=== PATIENT | male | born 1955 | race Caucasian/White ===

== ENCOUNTER → 2016-04-26 | Outpatient (CLI) | payer OTHER ==
[~2016-04-26] MED LIST: ASPI81TA28 PO; CALC-496 PO; CHOL2000 PO; HYDR50TA3 PO; LEVO1TAB35 PO; LSN40 PO; LVMIPEN SQ; NVLGI7030 SC; PYRI100T2 PO
[2016-04-26 17:50] LABS: ALT/SGPT 45 U/L (12-78); BLOOD UREA NITROGEN 29 mg/dl (7-18); BUN/CREATININE RATIO 22.5 (10-20); CALCIUM 8.8 mg/dl (8.5-10.1); CARBON DIOXIDE 28 mmol/L (21-32); CHLORIDE 101 mmol/L (98-107); GLUCOSE 191 mg/dl (70-99); POTASSIUM 4.4 mmol/L (3.5-5.1); SODIUM 139 mmol/L (136-145)
[2016-04-26 17:53] LABS: ALKALINE PHOSPHATASE 73 U/L (45-117); AST/SGOT 30 U/L (15-37)
== END | disposition home or self-care (01) ==
LOC: C.LABPVFM 15:08
PROVIDERS: ATTEND Nurse Practitioner Family
DX: Z20.5 Contact with and (suspected) exposure to viral hepatitis (principal)

== ENCOUNTER → 2016-05-13 | Outpatient (CLI) | payer OTHER ==
--- NOTE | 2016-05-13 09:00 | DIAGNOSTIC IMAGING REPORT ---
RENAL ULTRASOUND HISTORY: N18.9 Chronic renal [id number] COMPARISON: None. FINDINGS: Right kidney: 11.9 cm. No hydronephrosis. Normal corticomedullary differentiation and cortical thickness. Left kidney: 1.3 cm. No hydronephrosis. Normal corticomedullary differentiation and cortical thickness. Bladder: Not well distended which limits evaluation. The bilateral ureteral jets were identified. IMPRESSION: Normal renal ultrasound. Electronically signed by: Manish Ledbetter M.D. 05/13/2016 8:59 AM Dictated Date/Time: 05/13/2016 8:52 AM
[2016-05-13 09:33] LABS: BASO % 0.6 %; BASO ABS # 0.07 K/uL (0-0.2); COMPLETE YES; EOS % 2.5 %; HEMATOCRIT 40.8 % (42-52); IG% 0.4 %; LYMPH % 19.2 %; LYMPH ABS # 2.07 K/uL (1.2-3.4); MEAN CELL VOLUME 92.1 fL (80-100); MEAN CORPUSCULAR HEMOGLOBIN 32.3 pg (25-34); MEAN PLATELET VOLUME 11.2 fL (7.4-10.4); MONO % 7.5 %; NEUT % 69.8 %; PLATELET COUNT 214 K/uL (130-400); RED BLOOD COUNT 4.43 M/uL (4.7-6.1)
[2016-05-13 09:55] LABS: MANUAL MICROSCOPIC REQUIRED? NO; REVIEW REQ? NO; URINE APPEARANCE CLEAR (CLEAR); URINE BILIRUBIN NEG (NEG); URINE COLOR YELLOW; URINE EPITHELIAL CELL AUTO 0-5 /lpf (0-5); URINE NITRITE NEG (NEG); URINE SPECIFIC GRAVITY 1.018 (1.000-1.030); UROBILINOGEN NEG (NEG)
[2016-05-13 10:04] LABS: URINE PROTIEN/CREAT RATIO 0.1 (0-0.2); URINE TOTAL PROTEIN 10.2 mg/dl (0-11.9)
== END | disposition home or self-care (01) ==
LOC: C.ULTR 07:50
PROVIDERS: ATTEND Nurse Practitioner Family
DX: N18.9 Chronic kidney disease, unspecified (principal)

== ENCOUNTER → 2016-05-13 | Outpatient (CLI) | payer OTHER ==
--- NOTE | 2016-05-13 08:41 | DIAGNOSTIC IMAGING REPORT ---
RIGHT FOOT 2 VIEWS CLINICAL HISTORY: Right foot pain. COMPARISON STUDY: Right foot 01/19/2016 FINDINGS: There is again noted old, healed Lisfranc fracture/dislocation. Marked degenerative change at the tarsometatarsal joint and navicular/cuneiforms joints. There is associated pes planus deformity. Soft tissue swelling at the dorsum of the foot has improved. There are posterior and plantar calcaneal spurs. Mild vascular calcifications. No acute fracture or dislocation identified. The Lisfranc fracture/dislocation demonstrates up to 9 mm of lateral displacement. This is consistent with a homolateral Lisfranc fracture/dislocation. IMPRESSION: 1. No change in alignment of the displaced, healed Lisfranc fracture/dislocation. 2. No acute fracture or dislocation within the right foot. 3. Persistent pes planus deformity and degenerative changes. 4. Improved soft tissue swelling at the midfoot. Electronically signed by: Manish Ledbetter M.D. 05/13/2016 8:40 AM Dictated Date/Time: 05/13/2016 8:35 AM
== END | disposition home or self-care (01) ==
LOC: C.RAD 07:55
PROVIDERS: ATTEND Internal Medicine Endocrinology, Diabetes & Metabolism
DX: M79.671 Pain in right foot (principal); M21.41 Flat foot [pes planus] (acquired), right foot

== ENCOUNTER → 2016-05-19 | Outpatient (CLI) | payer OTHER ==
[2016-05-19 13:25] LABS: BLOOD UREA NITROGEN 34 mg/dl (7-18); BUN/CREATININE RATIO 28.2 (10-20); CALCIUM 8.6 mg/dl (8.5-10.1); CARBON DIOXIDE 26 mmol/L (21-32); CHLORIDE 98 mmol/L (98-107); GLUCOSE 199 mg/dl (70-99); POTASSIUM 4.5 mmol/L (3.5-5.1); SODIUM 134 mmol/L (136-145)
[2016-05-19 13:26] LABS: PHOSPHORUS 3.1 mg/dl (2.5-4.9)
== END | disposition home or self-care (01) ==
LOC: C.LABPVFM 08:51
PROVIDERS: ATTEND Internal Medicine Nephrology
DX: N18.9 Chronic kidney disease, unspecified (principal)

== ENCOUNTER → 2016-05-28 | Outpatient (CLI) | payer OTHER ==
[2016-05-29 06:09] LABS: ESTIMATED AVERAGE GLUCOSE 163 mg/dl; HA1C FLAG Normal (Normal)
== END | disposition home or self-care (01) ==
LOC: C.LABPVFM 15:50
PROVIDERS: ATTEND Nurse Practitioner Adult Health
DX: E11.49 Type 2 diabetes mellitus with other diabetic neurological complication (principal)

== ENCOUNTER 2016-11-19 12:51 | Inpatient (IN) | payer OTHER ==
[~2016-11-19] VITALS: Ht 165.1 cm; Wt 79.8 kg
[2016-11-19] MEDS ORDERED: SODIUM CHLORIDE 0.9% 1000ML 1,000 ML IV STA (14:22)
[2016-11-19] MEDS ORDERED: PIPERACILLIN/TAZOBACTAM 4.5 GM/100ML D5W IV ONE (14:23)
[2016-11-19] MEDS ORDERED: VANCOMYCIN INJ 1,750 MG in SODIUM CHLORIDE 0.9% 500ML 500 ML IV ONE (14:30)
[2016-11-19] MEDS ORDERED: CHOL2000 PO (14:32)
[2016-11-19] MEDS ORDERED: NVLGI7030 SC (14:32)
[2016-11-19] MEDS ORDERED: ASPI81TA28 PO (14:32)
[2016-11-19] MEDS ORDERED: HYDR50TA3 PO (14:32)
[2016-11-19] MEDS ORDERED: LSN40 PO (14:32)
[2016-11-19] MEDS ORDERED: LVMIPEN SQ (14:32)
[2016-11-19 15:04] LABS: BASO % 0.3 %; BASO ABS # 0.05 K/uL (0-0.2); COMPLETE YES; EOS % 1.2 %; HEMATOCRIT 35.2 % (42-52); IG% 0.4 %; LYMPH % 7.8 %; LYMPH ABS # 1.32 K/uL (1.2-3.4); MEAN CELL VOLUME 93.1 fL (80-100); MEAN CORPUSCULAR HGB CONC 34.4 g/dl (32-36); MEAN PLATELET VOLUME 10.4 fL (7.4-10.4); MONO % 6.3 %; PLATELET COUNT 400 K/uL (130-400); RED BLOOD COUNT 3.78 M/uL (4.7-6.1); WHITE BLOOD COUNT 16.87 K/uL (4.8-10.8)
[2016-11-19 15:10] LABS: INR 1.1 (0.9-1.1); PROTHROMBIN TIME (PATIENT) 11.4 SECONDS (9.0-12.0)
--- NOTE | 2016-11-19 15:18 | DIAGNOSTIC IMAGING REPORT ---
RIGHT FOOT 3 VIEWS CLINICAL HISTORY: Foot injury. Charcot foot. FINDINGS: 3 views of the right foot are compared to study dated 07/22/2015. The skeletal structures are osteopenic. Resorptive/destructive change is identified in the second toe involving the phalanges. This has significantly increased from 07/22/2015. Pes planus is noted. Severe arthritic change in the midfoot is again noted. There is persistent widening between the base of the first and second metatarsals with lateral subluxation of the second metatarsal at the second tarsometatarsal joint consistent with chronic Lisfranc fracture/dislocation. There is also lateral subluxation of the third through fifth metatarsals. No acute fracture is identified. Large dorsal and plantar calcaneal enthesophytes are identified. Significant spurring is present along the dorsal aspect of the tarsal bones. There is significant soft tissue edema in the foot. Atherosclerotic calcification is present in the regional arteries. IMPRESSION: 1. Diffuse soft tissue swelling with no radiographic evidence of acute fracture. 2. There is resorptive change/destruction involving the phalanges of the second toe. This is of indeterminant etiology and represents a significant change from 07/22/2015. Infection would be impossible to exclude and clinical correlation will be required. 3. Chronic changes of a Charcot foot as above as well as chronic Lisfranc fracture/dislocation are similar to previous. Electronically signed by: Armond Brady M.D. 11/19/2016 3:17 PM Dictated Date/Time: 11/19/2016 3:12 PM
[2016-11-19 15:31] LABS: BUN/CREATININE RATIO 25.5 (10-20); CALCIUM 8.9 mg/dl (8.5-10.1); CREATININE 1.2 mg/dl (0.60-1.40); POTASSIUM 4.5 mmol/L (3.5-5.1)
[2016-11-19 15:34] LABS: ALB/GLOB RATIO 0.7 (0.9-2)
--- NOTE | 2016-11-19 15:52 | EMERGENCY ROOM VISIT NOTE ---
History Report prepared by Britney: Jerel Reyna Under the Supervision of: Dr. Beverly Gayle D.O. First contact with patient: 14:06 Chief Complaint: FOOT PAIN Stated Complaint: R FOOT PAIN History of Present Illness The patient is a 61 year old male who presents to the Emergency Room for evaluation after removing a bone from his right second toe yesterday. He states that the bone came out of his right second toe after he pulled it out manually. The patient states that he pulled it yesterday because he thought it was a scab. He states that he dropped a weight on his foot a few weeks ago, and thought that the area was bruised with scabbing over top. He states that he was wrapping and caring for the injury prior to removing the bone. The patient has a history of diabetes, and states that his blood sugars have been normal lately. He denies any fevers, chills, nausea, vomiting, diarrhea, dizziness, chest pain, or SOB. He notes that the area that the bone came out of appears red and swollen. Source of History: patient Onset: Yesterday Position: toe(s) (right second) Quality: other (bone removal) Timing: other (episode) Associated Symptoms: No fevers, No chills, No chest pain, No SOB, No nausea , No vomiting, No diarrhea Note: Additional symptoms: redness and swelling of the right second toe. Review of Systems See HPI for pertinent positives & negatives. A total of 10 systems reviewed and were otherwise negative. Past Medical & Surgical Medical Problems: (1) Charcot foot due to diabetes mellitus (2) Diabetic peripheral neuropathy associated with type 2 diabetes mellitus (3) Foot deformity (4) Loss of sensation (5) Right foot injury Family History Patient reports no known family medical history. Social History Smoking Status: Never Smoker Marital Status: single Housing Status: lives alone Occupation Status: employed Current/Historical Medications Scheduled Aspirin (Aspirin Ec), 81 MG PO DAILY Calcium Polycarbophil (Fiber-Caps), 625 MG PO DAILY Cholecalciferol (Vitamin D3), 2,000 UNITS PO DAILY Hydrochlorothiazide (Hctz), 50 MG PO DAILY Insulin Aspart 70/30 (Novolog Mix 70/30), 35 UNITS SC before supper Insulin Detemir (Levemir Flextouch), 55 UNITS SQ QAM Lisinopril (Lisinopril), 40 MG PO DAILY Pyridoxine Hcl (Vitamin B6), 100 MG PO DAILY Allergies Coded Allergies: No Known Allergies (Unverified , 07/22/15) Physical Exam Vital Signs Date Time Temp Pulse Resp B/P (MAP) Pulse Ox O2 Delivery O2 Flow Rate FiO2 11/19/16 16:45 83 16 128/76 100 Room Air 11/19/16 14:42 88 16 125/72 100 Room Air 11/19/16 13:10 36.7 93 20 133/65 93 Room Air Physical Exam GENERAL: alert, well appearing, well nourished, no distress, non-toxic EYE EXAM: normal conjunctiva, PERRL and EOM's grossly intact OROPHARYNX: no exudate, no erythema, lips, buccal mucosa, and tongue normal and mucous membranes are moist NECK: supple, no nuchal rigidity, no adenopathy, non-tender LUNGS: Clear to auscultation. Normal chest wall mechanics HEART: no murmurs, S1 normal and S2 normal ABDOMEN: abdomen soft, non-tender, normo-active bowel sounds, no masses, no rebound or guarding. BACK: Back is symmetrical on inspection and there is no deformity, no midline tenderness, no CVA tenderness. SKIN: no rashes and no bruising UPPER EXTREMITIES: upper extremities are grossly normal. RLE: Obvious deformity along the medial and dorsal aspect secondary to Charcot foot and injury. Increased edema at the distal foot. Mild erythema at the second and third digit on the plantar aspect. Increased erythema with purulent drainage to the plantar aspect of the base of the second and third toes. Erythema to the plantar aspect of the foot distally. Obvious deep concavity noted at the base of the second toe. Purulent drainage emanating from the concavity. No bleeding. Foul odor noted. Patient produces what appears to be a bone at bedside. NEURO EXAM: Normal sensorium, cranial nerves II-XII grossly intact, normal speech, no gross weakness of arms, no gross weakness of legs. Medical Decision & Procedures ER Provider Diagnostic Interpretation: Radiology results have been interpreted by the radiologist and reviewed by me. RIGHT FOOT 3 VIEWS FINDINGS: 3 views of the right foot are compared to study dated 07/22/2015. The skeletal structures are osteopenic. Resorptive/destructive change is identified in the second toe involving the phalanges. This has significantly increased from 07/22/2015. Pes planus is noted. Severe arthritic change in the midfoot is again noted. There is persistent widening between the base of the first and second metatarsals with lateral subluxation of the second metatarsal at the second tarsometatarsal joint consistent with chronic Lisfranc fracture/dislocation. There is also lateral subluxation of the third through fifth metatarsals. No acute fracture is identified. Large dorsal and plantar calcaneal enthesophytes are identified. Significant spurring is present along the dorsal aspect of the tarsal bones. There is significant soft tissue edema in the foot. Atherosclerotic calcification is present in the regional arteries. IMPRESSION: 1. Diffuse soft tissue swelling with no radiographic evidence of acute fracture. 2. There is resorptive change/destruction involving the phalanges of the second toe. This is of indeterminant etiology and represents a significant change from 07/22/2015. Infection would be impossible to exclude and clinical correlation will be required. 3. Chronic changes of a Charcot foot as above as well as chronic Lisfranc fracture/dislocation are similar to previous. Electronically signed by: Armond Brady M.D. Laboratory Results 11/19/16 14:30 Red Blood Count 3.78, Mean Corpuscular Volume 93.1, Mean Corpuscular Hemoglobin 32.0, Mean Corpuscular Hemoglobin Concent 34.4, Mean Platelet Volume 10.4, Neutrophils (%) (Auto) 84.0, Lymphocytes (%) (Auto) 7.8, Monocytes (%) (Auto) 6.3, Eosinophils (%) (Auto) 1.2, Basophils (%) (Auto) 0.3, Neutrophils # (Auto) 14.17, Lymphocytes # (Auto) 1.32, Monocytes # (Auto) 1.06, Eosinophils # (Auto) 0.21, Basophils # (Auto) 0.05 11/19/16 14:30 Test 11/19/16 14:30 11/19/16 15:53 White Blood Count 16.87 K/uL (4.8-10.8) Red Blood Count 3.78 M/uL (4.7-6.1) Hemoglobin 12.1 g/dL (14.0-18.0) Hematocrit 35.2 % (42-52) Mean Corpuscular Volume 93.1 fL (80-100) Mean Corpuscular Hemoglobin 32.0 pg (25-34) Mean Corpuscular Hemoglobin Concent 34.4 g/dl (32-36) Platelet Count 400 K/uL (130-400) Mean Platelet Volume 10.4 fL (7.4-10.4) Neutrophils (%) (Auto) 84.0 % Lymphocytes (%) (Auto) 7.8 % Monocytes (%) (Auto) 6.3 % Eosinophils (%) (Auto) 1.2 % Basophils (%) (Auto) 0.3 % Neutrophils # (Auto) 14.17 K/uL (1.4-6.5) Lymphocytes # (Auto) 1.32 K/uL (1.2-3.4) Monocytes # (Auto) 1.06 K/uL (0.11-0.59) Eosinophils # (Auto) 0.21 K/uL (0-0.5) Basophils # (Auto) 0.05 K/uL (0-0.2) RDW Standard Deviation 44.6 fL (36.4-46.3) RDW Coefficient of Variation 13.1 % (11.5-14.5) Immature Granulocyte % (Auto) 0.4 % Immature Granulocyte # (Auto) 0.06 K/uL (0.00-0.02) Erythrocyte Sedimentation Rate 79 mm/hr (0-14) Prothrombin Time 11.4 SECONDS (9.0-12.0) Prothromb Time International Ratio 1.1 (0.9-1.1) Anion Gap 7.0 mmol/L (3-11) Est Creatinine Clear Calc Drug Dose 61.9 ml/min Estimated GFR () 76.3 Estimated GFR (Non- 65.8 BUN/Creatinine Ratio 25.5 (10-20) Calcium Level 8.9 mg/dl (8.5-10.1) Total Bilirubin 0.6 mg/dl (0.2-1) Aspartate Amino Transf (AST/SGOT) 20 U/L (15-37) Alanine Aminotransferase (ALT/SGPT) 28 U/L (12-78) Alkaline Phosphatase 95 U/L (45-117) Total Protein 8.1 gm/dl (6.4-8.2) Albumin 3.2 gm/dl (3.4-5.0) Globulin 4.9 gm/dl (2.5-4.0) Albumin/Globulin Ratio 0.7 (0.9-2) Bedside Lactic Acid Venous 1.10 mmol/L (0.90-1.70) Laboratory results per my review. Medications Administered Medications (Trade) Dose Ordered Sig/Cristiana Route Start Time Stop Time Status Last Admin Dose Admin Piperacillin Sod/ Tazobactam Sod (Zosyn Iv) 4.5 gm NOW ONCE IV 11/19/16 14:23 11/19/16 14:25 DC 11/19/16 14:40 4.5 GM Vancomycin HCl 1750 mg/Sodium Chloride 535 ml @ 200 mls/hr NOW ONCE IV 11/19/16 14:30 11/19/16 17:10 DC 11/19/16 15:26 200 MLS/HR Sodium Chloride 1,000 ml @ 250 mls/hr Q4H STAT IV 11/19/16 14:22 11/19/16 18:21 DC 11/19/16 14:40 250 MLS/HR ED Course 1413: The patient was evaluated in room A3. A complete history and physical exam was performed. 1422: Ordered Sodium Chloride 1000 ml @ 250 mls/hr IV, Zosyn 4.5 gm IV. 1430: Ordered Vancomycin HCl 1750 mg/Sodium Chloride 535 ml @ 200 mls/hr IV. 1548: Upon reevaluation, the patient is resting comfortably. I discussed the findings and the treatment plan with the patient. He expresses agreement and understanding. I [place] [facility] [place]. The patient will be evaluated for further management. Medical Decision Differential diagnosis includes etiologies such as cellulitis, abscess, MRSA infection, DVT, necrotizing fasciitis, dermatitis, drug eruption, as well as others were entertained. Likely original injury complicated by wound infection and subsequent osteomyelitis as been progressing over the course of the last 3 weeks. Patient known diabetic. Did have hyperglycemia here, however no evidence of DKA. Patient's kidney number suggestive of dehydration. Patient with no evidence for bacteremia/sepsis, stable vital signs swelling or to department and afebrile. Leukocytosis likely manifestation of patient's infection. Pt presented portion of right 2nd middle phalanx here that he removed from his right foot at the base of the 2nd toe plantar aspect. Patient covered with IV antibiotics and cultures pending. Patient admitted to the hospitalist for likely additional imaging and orthopedic consultation. Patient verbalized understanding of need for admission was agreeable with plan. Medication Reconcilliation Current Medication List: was personally reviewed by me Blood Pressure Screening Patient's blood pressure: Normal blood pressure Blood pressure disposition: Did not require urgent referral Consults Time Called: [phone] Consulting Physician: Dr. Vera -MONET Returned Call: [phone] I reviewed the patient's case with Dr Vera. [facility] will evaluate the patient for further management. Impression Primary Impression: Osteomyelitis Additional Impressions: Right foot injury Diabetic peripheral neuropathy associated with type 2 diabetes mellitus Hyperglycemia Scribe Attestation The scribe's documentation has been prepared under my direction and personally reviewed by me in its entirety. I confirm that the note above accurately reflects all work, treatment, procedures, and medical decision making performed by me. Departure Information Dispostion Being Evaluated By Hospitalist Referrals Neda Meeks C.R.N.P (PCP) Patient Instructions My [facility] Problem Qualifiers Primary Impression: Osteomyelitis Osteomyelitis type: subacute Osteomyelitis location: foot Laterality: right Qualified Codes: M86.271 - Subacute osteomyelitis, right ankle and foot Additional Impressions: Right foot injury Encounter type: initial encounter Qualified Codes: S99.921A - Unspecified injury of right foot, initial encounter
[2016-11-19] MEDS ORDERED: POLYETHYLENE (MIRALAX) 17 GM PACK PO PRN (17:30)
[2016-11-19] MEDS ORDERED: ONDANSETRON INJ 2 MG/ML 2 ML VIAL IV PRN (17:30)
[2016-11-19] MEDS ORDERED: ALUMINUM/MAGNESIUM/SIMETH (MAALOX MAX) 30 ML UDC PO PRN (17:30)
[2016-11-19] MEDS ORDERED: MAGNESIUM HYDROXIDE SUSP 30 ML UDC PO PRN (17:30)
[2016-11-19] MEDS ORDERED: ACETAMINOPHEN 325 MG TAB PO PRN (17:30)
[2016-11-19 18:29] VITALS: BP 164/91; PULSE 71; TEMP 37; O2SAT 97
[2016-11-19] MEDS ORDERED: VANCOMYCIN CONSULT ACTIVE PRN (18:45)
[2016-11-19] MEDS ORDERED: GLUCAGON FOR INJ 1 MG VIAL SQ PRN (18:45)
[2016-11-19] MEDS ORDERED: PIPERACILL/TAZOBAC CONSULT ACTIVE PRN (18:45)
[2016-11-19] MEDS ORDERED: DEXTROSE 50% 50 ML SYR IV PRN (18:45)
[2016-11-19] MEDS ORDERED: GLUCOSE 40% GEL 15 GM TUBE PO PRN (18:45)
[2016-11-19] MEDS ORDERED: GLUCOSE 10 TABS/TUBE PO PRN (18:45)
--- NOTE | 2016-11-19 18:50 | Pharmacy Progress Note ---
Pharmacy Abx Initial Consult Date of Service Nov 19, 2016. Pharmacy Dosing Scope Date of Consult: 11/19/16 Consultation requested by: Dr. Vera Pharmacy is consulted to initiate Vancomycin and Zosyn IV dosing therapy, order appropriate labs and adjust drug dose/frequency. Subjective The patient is a 61 year old male admitted on Nov 19, 2016 at 17:35 with right foot infection after manually removing his own right 2nd toe, as patient thought it was a scab. PMH significant for DM with peripheral neuropathy. Objective Height (Feet): 5 Height (Inches): 3.00 Weight (Kilograms): 79.800 Vital Signs (Past 12Hrs) Vital Signs Past 12 Hours Date Time Temp Pulse Resp B/P (MAP) Pulse Ox O2 Delivery O2 Flow Rate FiO2 11/19/16 18:29 37.0 71 20 164/91 (115) 97 Room Air 11/19/16 17:46 87 18 156/83 99 Room Air 11/19/16 16:45 83 16 128/76 100 Room Air 11/19/16 14:42 88 16 125/72 100 Room Air 11/19/16 13:10 36.7 93 20 133/65 93 Room Air Lab Results (24Hrs) Laboratory Tests (24 Hours) Item Value Date Time Creatinine 1.20 mg/dl 11/19/16 1430 Est Creatinine Clear Calc Drug Dose 61.9 ml/min 11/19/16 1430 Test 11/19/16 14:30 White Blood Count 16.87 K/uL (4.8-10.8) H Red Blood Count 3.78 M/uL (4.7-6.1) L Hemoglobin 12.1 g/dL (14.0-18.0) L Hematocrit 35.2 % (42-52) L Mean Corpuscular Volume 93.1 fL (80-100) Mean Corpuscular Hemoglobin 32.0 pg (25-34) Mean Corpuscular Hemoglobin Concent 34.4 g/dl (32-36) Platelet Count 400 K/uL (130-400) Mean Platelet Volume 10.4 fL (7.4-10.4) Neutrophils (%) (Auto) 84.0 % Lymphocytes (%) (Auto) 7.8 % Monocytes (%) (Auto) 6.3 % Eosinophils (%) (Auto) 1.2 % Basophils (%) (Auto) 0.3 % Neutrophils # (Auto) 14.17 K/uL (1.4-6.5) H Lymphocytes # (Auto) 1.32 K/uL (1.2-3.4) Monocytes # (Auto) 1.06 K/uL (0.11-0.59) H Eosinophils # (Auto) 0.21 K/uL (0-0.5) Basophils # (Auto) 0.05 K/uL (0-0.2) Micro Results Date/Time Source Procedure Growth Status 11/19/16 14:30 Blood Blood Culture Pending Received 11/19/16 14:30 Blood Blood Culture Pending Received 11/19/16 14:39 Drainage-Deep Foot Right Gram Stain Pending Received 11/19/16 14:39 Drainage-Deep Foot Right Wound Culture Pending Received Assessment & Plan Assessment 61 year old male admitted for cellulitis and possible osteomyelitis of right foot after removal of 2nd right toe of wounded foot. Elevated WBC. Patient requires IV antibiotics, covering for possible anaerobes and MRSA. Plan Vancomycin and Zosyn IV for treatment of cellulitis of foot with possible osteomyelitis. Vancomycin IV * Loading dose: 1750 mg (22 mg/kg) x 1 today in ED at 1530 * Maintenance dose: 1250 mg IV (15 mg/kg) every 12 hours (dosing interval at patient's half life at this time as pt has possible osteo, may need to increase interval after first level) * Estimated pharmacokinetic parameters: T1/2 = 12 hours, Gerson = 0.056/hr, Vd = 0.7L/Kg * Goal trough level for cellulitis with possible osteomyelitis : 15 to 20 mcg/mL , shooting for upper side of range at this time for possible osteo * Trough level ordered for 11/21/16 prior to 0400 dose, this will be after patient has had 3 total doses of IV Vancomycin Piperacillin/tazobactam * 4.5 g bolus administered over 30 minutes x 1 in ED today, then 3.375 g IV extended infusion every 8 hours for CrCl greater than 20 mL/min Pharmacy will continue to follow and will adjust dose/frequency as necessary. Thank you.
[2016-11-19 18:53] VITALS: BP 164/91; PULSE 71; TEMP 37; O2SAT 97; Ht 165.1 cm; Wt 79.8 kg
[2016-11-19] MEDS: INSULIN ASPART 100 UNITS/ML 3 ML PEN SC SCH ×2 (20:00→21:00)
[2016-11-19] MEDS ORDERED: PYRI100T2 PO (20:52)
[2016-11-19] MEDS ORDERED: CALC-496 PO (20:52)
[2016-11-19] MEDS: PIPERACILL/TAZOBAC IV 3.375 GM in DEXTROSE 5% 100ML 100 ML IV SCH (20:52)
[2016-11-19] MEDS: INSULIN GLARGINE SOLOSTAR 100 UNITS/ML 3 ML PEN SC SCH (21:00)
[2016-11-19] MEDS: ENOXAPARIN 40 MG/0.4 ML SYR SQ SCH (21:07)
--- NOTE | 2016-11-19 21:28 | History and Physical ---
History & Physical Date of Service Nov 19, 2016. History & Physical admit #[id number]
--- NOTE | 2016-11-19 22:29 | HISTORY & PHYSICAL EXAMINATION ---
DATE OF ADMISSION: 11/19/2016 ADMISSION HISTORY AND PHYSICAL CHIEF COMPLAINT: Foot swelling and drainage from the wound. HISTORY OF PRESENT ILLNESS: History is obtained in large part from the ER and outpatient records because by the time I see the patient is fairly upset and agitated, he will reiterate some of the HPI, but it is difficult to get from him. It sounds like about 3 weeks ago he dropped a 55-pound weight on the right foot. He noted some immediate swelling and bruising, but because he has a Charcot foot and does not really have any sensation and there was not pain, he continued to walk and go about his business, maybe a week or two ago, then it started to be more swollen and recently there has been a wound and some purulent drainage. He then about 2 days ago was cleaning them with peroxide as he had been doing and felt like there was maybe a scab and he pulled a piece of bone out and continued to take care of the wound and then because of the drainage would not heal, he went to his PCP for further evaluation. There, they evaluated and had great concerns about the severity of the wound and the depth of infection and apparently the patient was a bit refractory to wanting further treatment. After imploring him, he did agree to go to the ER as long as he drove himself here he arrives and has no other complaints beyond that medically. He denies fevers, chills or sweats. No nausea, no vomiting. He does note with his sugars that they are all over the place, sometimes 50 sometimes 200, but mostly he is upset because he claims he has been lied to. He claims that he was told that he would just need to get a dose of IV antibiotics because it would get into his system faster and then likely be able to go home and feels like people are giving him different stories. He wants to go to his car to get information to be able to contact his brother and contact somebody about a shipment coming in from [place] tomorrow and whenever I even tried to explain the gravity of the situation and work towards a compromise to allow him to achieve these things, but in a way that is safe, he threatens to sign out AMA and threatens to call floor person. After quite a while, I am able to talk him down and I explained that we were going to try to reach a compromise to allow him to rearrange his outside of the hospital plans in a way that it would keep him safe. REVIEW OF SYSTEMS: Otherwise negative, except for as above. PAST MEDICAL HISTORY: Includes type 2 diabetes, uncontrolled with diabetic neuropathy, chronic renal disease and Charcot foot, hypertension, hypertriglyceridemia and microalbuminuria. PAST SURGICAL HISTORY: None of note. FAMILY HISTORY: Includes diabetes and cancer. SOCIAL HISTORY: He is . 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 He does drink alcohol weekly. No drugs. MEDICATIONS: Aspirin 81 mg daily, fiber daily, hydrochlorothiazide 50 mg daily, Levemir 40 units in the morning, NovoLog 35 units before supper, lisinopril 40 mg daily, vitamin B6 daily, vitamin D3 4000 international units daily. PHYSICAL EXAMINATION: VITAL SIGNS: Temperature 36.7, pulse 93, respiratory rate 20, blood pressure 133/65, 93% on room air. GENERAL: He is awake, alert, oriented x3. He is emotionally agitated, but in no physical distress. HEENT: Normocephalic, atraumatic. Mucous membranes are moist. CARDIOVASCULAR: Regular without rubs, murmurs, or gallops. LUNGS: Clear to auscultation bilaterally. No rales, rhonchi, or wheezes with good effort. ABDOMEN: Soft, nondistended, nontender, no masses or organomegaly. EXTREMITIES: Without cyanosis, clubbing or edema except for his right foot which is grossly edematous, erythematous. There is a wound at the base of his second toe with exudate coming out of it, the toe is quite floppy appearing to not have bone attached and he also has a bone that appears to fit in the area that is lucent, floppy that is sitting next to him at the bedside, it does appear to be fractured and a bit eroded SKIN: Shows the erythema and exudate in wound as above. No other rashes, pallor or icterus. NEUROLOGIC: Shows cranial nerves II-XII to be grossly intact. Gross motor and sensory are intact. MENTAL STATE: Shows good recent and remote recall. He is a somewhat agitated with fair to poor judgment and insight and fairly angry mood and affect, although with extensive discussions on his medical situation, the likely plans of action, the likely length of time and the fact that we will work with him to try to make sure he is able to reorder his out of hospital arrangements, he does calm down some, although immediately goes back to making sure that his out of hospital arrangements can be reordered. LABORATORIES AND DIAGNOSTICS: White count of 16.9, hemoglobin 12.1, platelets 400; 84% neutrophils, MCV of 93.1. Complete metabolic panel with sodium 136, potassium 4.5, chloride 102, CO2 27, BUN 31, creatinine 1.2, calcium 8.9, glucose 209, lactate 1.1, calcium 8.9, Total bili 0.6, AST of 20, ALT 28, alkaline phosphatase 95, total protein 8.1, albumin 3.2. PT of 11.4. His foot x-ray shows diffuse soft tissue swelling with no evidence of acute fracture resultant for destructive change involving the phalanges of the second toe, indeterminate etiology representing a significant change from prior chronic changes of a Charcot foot as well as chronic Lisfranc fracture dislocation. ASSESSMENT AND PLAN:1. Diabetic foot infection with sepsis and osteomyelitis. Unfortunately, it is very clear that he has osteomyelitis given that he not only had exposed bone, but he is removed it himself from his body. Given risks, certainly will be starting with broad antibiotic coverage with Zosyn and vancomycin. Cultures have been taken, blood cultures and from his foot. Hopefully, these will be able to help guide us more on treatment. He does show sepsis, but fortunately not severe sepsis and does appear to be medically stable with the situation. We will continue the Zosyn and vancomycin, have infectious disease see him for help with ongoing antibiotic treatment since very clear and I discussed with the patient the treatment will likely need to be prolonged in the order of be at least 6 weeks, possibly longer. Will have orthopedic surgery and wound physician see him in regards to further debridement, further surgical measures and I discussed this with him the elizabet detail as well that he may need further surgeries versus ongoing local wound care. Obviously, we will be consulting the wound care team for ongoing care as well and follow serial labs and serial exams. 2. Uncontrolled type 2 diabetes. We will switch him over from his regimen of a basal insulin 70/30 to a Lantus log regimen. Check an A1c, his last one was actually 7.3 in May. Follow fingersticks and give supplemental insulin as needed. 3. Hypertension. Continue his home medications. Obviously follow closely for anything but given that he is hypertensive despite his sepsis, will continue his antihypertensives. 4. Diabetic nephropathy as evidenced by his prior microalbuminuria. His creatinine is 1.2 and this appears to be around his most recent baseline, so he may have a degree of stage II chronic kidney disease. Continue to follow. Follow daily basic metabolic panel at least until his situation is more stabilized. 5. Deep venous thrombosis prophylaxis, Lovenox. 6. Agitation. I tried to explain the situation to the patient carefully in detail in plain language and repetitively as well as discussed with him that we would try to make every accommodation to help him arrange his life outside the hospital while knowing that he is in a very dire situation, given the severity of the foot infection and the strong concern of losing his foot from this. He would alternately express understanding of this and then demand to be able to go outside. I discussed with nursing to be able to arrange supervised nonweightbearing wheelchair escort to his car to get his needed information and he was okay with this, but then insistent to remind me that it would happen interestingly than when discussing the case later with the ER physician he had already expressed exactly that is the plan to him before I ever even met him. So, I do have concerns about his agitation to the situation whether it is a degree of denial of the severity of the situation whether it is another external reason for agitation, but certainly we will need to watch him closely and offer a continuous explanations, education and reassurance on the situation. PRAVEEN
[2016-11-19 23:08] VITALS: BP 125/69; PULSE 81; TEMP 36.8; O2SAT 98
[2016-11-20] VITALS (9 sets, daily range): BP systolic 112–171; BP diastolic 66–81; PULSE 77–110; TEMP 36.5–37.2; O2SAT 93–100
[2016-11-20] MEDS: VANCOMYCIN INJ 1,250 MG in SODIUM CHLORIDE 0.9% 250ML 250 ML IV SCH ×2 (03:35→15:59)
[2016-11-20] MEDS ORDERED: VANCOMYCIN INJ 1,250 MG in SODIUM CHLORIDE 0.9% 250ML 250 ML IV SCH (04:00)
[2016-11-20] MEDS: PIPERACILL/TAZOBAC IV 3.375 GM in DEXTROSE 5% 100ML 100 ML IV SCH ×3 (06:13→23:20)
[2016-11-20] MEDS: INSULIN ASPART 100 UNITS/ML 3 ML PEN SC SCH ×3 (08:00→18:30)
[2016-11-20 08:34] LABS: ESTIMATED AVERAGE GLUCOSE 166 mg/dl; HA1C FLAG Normal (Normal)
[2016-11-20 08:50] LABS: BASO % 0.7 %; BASO ABS # 0.09 K/uL (0-0.2); COMPLETE YES; EOS % 3.4 %; HEMATOCRIT 36.6 % (42-52); IG% 0.5 %; LYMPH % 13.8 %; LYMPH ABS # 1.67 K/uL (1.2-3.4); MEAN CELL VOLUME 93.1 fL (80-100); MEAN CORPUSCULAR HEMOGLOBIN 31.3 pg (25-34); MEAN CORPUSCULAR HGB CONC 33.6 g/dl (32-36); NEUT % 74.6 %; PLATELET COUNT 351 K/uL (130-400); RED BLOOD COUNT 3.93 M/uL (4.7-6.1); WHITE BLOOD COUNT 12.06 K/uL (4.8-10.8)
[2016-11-20] MEDS ORDERED: ONDANSETRON INJ 2 MG/ML 2 ML VIAL ONE (08:56)
[2016-11-20] MEDS ORDERED: ROCURONIUM BROMIDE 10 MG/ML 5 ML VIAL IV ONE (08:56)
[2016-11-20] MEDS ORDERED: EpHEDrine SULFATE INJ 50 MG/ML AMP ONE (08:56)
[2016-11-20] MEDS ORDERED: SUCCINYLCHOLINE CHLORIDE 20 MG/ML 10 ML VIAL IV ONE (08:56)
[2016-11-20] MEDS ORDERED: DEXAMETHASONE SOD INJ 4 MG/ML VIAL ONE (08:56)
[2016-11-20] MEDS ORDERED: LIDOCAINE HCL 2% 2 ML VIAL (20MG/ML) ONE (08:56)
[2016-11-20] MEDS ORDERED: GLYCOPYRROLATE INJ 0.2 MG/ML VIAL ONE (08:56)
[2016-11-20] MEDS ORDERED: PROPOFOL IV EMULSION 10 MG/ML 20 ML VIAL IV ONE (08:56)
[2016-11-20] MEDS ORDERED: NEOSTIGMINE METHYLSULFATE 5 MG/5 ML SYR ONE (08:56)
[2016-11-20] MEDS ORDERED: PHENYLEPHRINE HCL INJ 10 MG/ML VIAL ONE (08:56)
[2016-11-20] MEDS ORDERED: MIDAZOLAM HCL 1 MG/ML 2ML VIAL ONE (08:57)
[2016-11-20] MEDS ORDERED: FENTANYL CITRATE INJ 50 MCG/1 ML 2 ML VIAL ONE ×2 (08:57)
--- NOTE | 2016-11-20 08:59 | Progress Note ---
Progress Note Date of Service Nov 20, 2016. Progress Note ID Consult Dictated #[id number] A/P: 1. Traumatic foot injury, likely acute osteo -Follow cultures, continue emperic abx for now -Surgical eval pending, may require debridement/amp, please obtain OR cultures -Thank you
[2016-11-20] MEDS ORDERED: ONDANSETRON INJ 2 MG/ML 2 ML VIAL IV PRN (09:00)
[2016-11-20] MEDS ORDERED: ATROPINE SULFATE 0.1 MG/ML 5ML SYR IV PRN (09:00)
[2016-11-20] MEDS ORDERED: EpHEDrine SULFATE INJ 50 MG/ML AMP IV PRN (09:00)
[2016-11-20] MEDS ORDERED: FENTANYL CITRATE INJ 50 MCG/1 ML 2 ML VIAL IV PRN (09:00)
[2016-11-20] MEDS ORDERED: HYDROmorphone INJ 1 MG/ML SYR IV PRN (09:00)
[2016-11-20] MEDS ORDERED: LIDOCAINE/EPINEPHRINE 1% 20 ML VIAL ONE (09:02)
[2016-11-20] MEDS ORDERED: BUPIVACAINE 0.5 % 5 MG/1 ML MPF 30ML VIAL ONE (09:02)
--- NOTE | 2016-11-20 09:05 | Medical Consult ---
Consultation Note Date of Service Nov 20, 2016. Consultation Note CHIEF COMPLAINT: Right foot swelling and drainage from open wound. HISTORY OF PRESENT ILLNESS: Darius is a pleasant 61-year-old male, who dropped a weight on his foot 3 weeks ago and developed a wound on the base of his second toe they have been treating with peroxide. 2 days ago there was a scab that he pulled off and with it came part of the proximal phalanx. He was sent to the emergency room where he was admitted and started on IV antibiotics. He is felt to have osteomyelitis of the second toe and sepsis. Dr. Sheffield was consult did for osteomyelitis and right foot wound. He is out of town and I am covering for him. Past medical history: Uncontrolled type II diabetic, neuropathy, chronic renal disease, Charcot foot, hypertension, hyper triglyceridemia with microalbuminuria. past surgical history: Denies. MEDICATIONS: Aspirin 81 mg daily fiber daily hydrochlorothiazide 50 mg daily Levemir 40 units in the morning NovoLog 35 units before supper lisinopril 40 mg daily vitamin B6 daily vitamin D3 4000 international units daily. ALLERGIES: No known drug allergies. FAMILY HISTORY: Diabetes and cancer. SOCIAL HISTORY: He is and lives alone. 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 He admits to alcohol use. Denies recreational drug use. REVIEW OF SYSTEMS: A 10-point review of systems is noted in the shared ER intake form. PHYSICAL EXAM: Patient is in no acute distress breathing easily at 16-20 breaths per minute. The patient is resting comfortably on his hospital bed . They have an appropriate mood and affect. They weigh 79.8 kg and are 165 cm tall . focusing on his right lower extremity, his dressing was removed. He has no feeling in his toes. There is significant swelling of the right second toe with purulent drainage coming from the MCP joint region. There is erythema about the toe as well. He is able to wiggle his toes with limited range of motion. He has an obvious foot deformity consistent with Charcot foot. RADIOGRAPHS: 3 views of the right foot show significant swelling of the second toe as well as loss of bone from the proximal phalanx, middle phalanx and fragmentation of the distal phalanx. LABS: WBCs 12.6, ESR 79, hemoglobin 12.3, platelets 351. Blood cultures are pending. Gram stain of the wound showed many WBCs, few epithelial cells, many gram- positive cocci, few gram-positive bacilli and a few gram-negative bacilli. IMPRESSION: Right second toe osteomyelitis, in a septic patient. PLAN: After a lengthy discussion with the patient today regarding my above clinical findings, as well as reviewing their imaging, their treatment options of conservative management versus surgical intervention were discussed. The risk and benefits of each were discussed. Due to him having sepsis, I recommended emergent I&D and partial amputation of the second toe. I did speak with the primary care team who also felt that he was medically stable to proceed with surgery. He will continue with IV antibiotics. He understands that he may require further evaluation and repeat surgery. The risks of surgery included but not limited to: Infection, bleeding, nerve damage, continued pain, and deep vein thrombosis. They would like to proceed with surgery and informed consent was signed. The patient understood all my instructions and explanation; all their questions were satisfactorily addressed.
[2016-11-20] MEDS ORDERED: POVIDONE-IODINE OP SOLN 30 ML BTL ONE (09:07)
[2016-11-20 09:35] LABS: BUN/CREATININE RATIO 19.9 (10-20); C-REACTIVE PROTEIN 9.98 mg/dl (0-0.29); CALCIUM 8.6 mg/dl (8.5-10.1); POTASSIUM 4.4 mmol/L (3.5-5.1)
--- NOTE | 2016-11-20 10:02 | INFECT. DISEASE CONSULTATION ---
DATE OF CONSULTATION: 11/20/2016 DATE OF CONSULTATION: 11/20/2016 REQUESTING PHYSICIAN: Dr. Vera. HISTORY OF PRESENT ILLNESS: This is a 61-year-old gentleman who was admitted after he had purulent drainage from his right foot. Per the H&P, he dropped a weight on his foot sometime ago. Over the past several weeks his wound continued to worsen and he was treating this locally at home. He does have a Charcot foot on the right and has decreased sensation so he has not had any complaint of pain. A few weeks ago he noticed fragments of bone coming out on the wound. He then noticed purulent drainage. At that time, he did follow up with his primary care physician and he was encouraged to present to the Emergency Room. In the ER wound and blood cultures were obtained. The results of this are pending. He was placed on vancomycin and Zosyn. He does have a white blood cell count of 16.8 and sed rate that is elevated at 79. He has been afebrile since admission. An orthopedic evaluation is pending. He is tolerating antibiotics well. He continues to have drainage from the foot. He denies any fevers or chills. He has no chest pain, cough, shortness of breath, nausea, vomiting, diarrhea or abdominal pain. All remaining review of systems are reviewed and are unremarkable. PAST MEDICAL HISTORY: Significant for type 2 diabetes, neuropathy, renal disease, Charcot foot, hypertension, high cholesterol and microalbuminuria. PAST SURGICAL HISTORY: There is no surgical history of note. FAMILY HISTORY: Noncontributory. SOCIAL HISTORY: Significant for occasional alcohol use. He denies any drug use or tobacco use. He is retired. CURRENT MEDICATIONS: Include aspirin, calcium, hydrochlorothiazide, lisinopril, vitamin B6, vitamin D, vancomycin, Zosyn, Lovenox, Lantus, NovoLog, Tylenol, Maalox, milk of magnesia, MiraLax and Zofran. ALLERGIES: He has no known drug allergies. PHYSICAL EXAMINATION: VITAL SIGNS: She is afebrile, pulse 77, respiratory rate 18, blood pressure 147/74, oxygen saturation is 97-99% on room air. GENERAL: He is awake, alert and oriented x3. He is in no acute distress. HEAD, EYES, EARS, NOSE, AND THROAT: Mucous membranes are moist. Extraocular muscles are intact. HEART: Regular. LUNGS: Clear bilaterally. ABDOMEN: Soft, nontender, nondistended. There is no lower extremity edema. SKIN: Without rash. EXTREMITIES: Examination of the right foot reveals significant wound on the plantar aspect of the foot and across the second toe. There is seropurulent drainage. There is no foul odor. There is no surrounding warmth or erythema. There is no tenderness to palpation. LABORATORY STUDIES: CBC yesterday revealed a white blood cell count of 16.8, hemoglobin 12.1, platelets were 400. Sed rate was 79. Chemistry panel revealed a sodium of 139, potassium 4.5, chloride 102, bicarb 27, BUN 31, creatinine 1.2, glucose is 209. LFTs are within normal limits. CRP is pending. Blood and wound cultures are pending. Foot x-ray done in the Emergency Room shows soft tissue swelling with no evidence of fracture, resorptive and destructive changes of the second toe, significant change from June 2015. ASSESSMENT AND PLAN: Traumatic foot injury with likely associated osteomyelitis. He will remain on empiric antibiotics pending culture results. A surgical evaluation is pending. He certainly may need debridement and/or amputation. We will follow along with you. Thank you for this consultation.
--- NOTE | 2016-11-20 11:20 | DIAGNOSTIC IMAGING REPORT ---
Radiology RIGHT TOE(S) MIN 2 VIEWS CLINICAL HISTORY: 61 years-old Male presenting with I D RT 2ND DIGIT Right. TECHNIQUE: 2 fluoroscopic spot image(s) obtained as part of an intraoperative procedure. COMPARISON: 11/19/2016. FINDINGS/IMPRESSION: There has been interval resection of the second toe, which previously demonstrated extensive osseous erosion compatible with osteomyelitis. Preservation of the second metatarsal head and remaining phalanges. Anatomic alignment grossly maintained. Please see surgical report for further details. Fluoroscopy dosage (mGy): Not available. Fluoroscopy time: 11 seconds. Number of fluoroscopic spot images: 2. Electronically signed by: Markus Bautista M.D. 11/20/2016 11:18 AM Dictated Date/Time: 11/20/2016 11:17 AM
--- NOTE | 2016-11-20 11:34 | [facility] Operative Report ---
Operative Report Operative Date Nov 20, 2016. Pre-Operative Diagnosis Right second toe osteomyelitis, in a septic patient Post-Operative Diagnosis Right second toe osteomyelitis, in a septic patient Procedure(s) Performed Right second toe incision and drainage, 2nd toe amputation Surgeon Dr. Rowena Coreas Converter Operator Surgeon(s) Dr. Doug Rivas Estimated Blood Loss 12 mL Findings Infected Right 2nd toe, with pocket of purulent discharge volarly. Fluids 1000 Specimens Microbiology #1. Right second toe Routine C/S, Gram stain, Anerobic/Aerobic Sent to lab at 1005 Permanent specimens A: Right second toe Drains Iodaform gauze Anesthesia General Complication(s) None Disposition Recovery Room / PACU (Stable) Indications The patient is a 61-year-old male with diabetes and Charcot foot who dropped a weight on his foot 3 weeks ago and developed an open draining second toe wound and 2 days ago pulled out the proximal phalanx before coming to the hospital. He is has osteomyelitis and sepsis. The patient understands the risks of surgery, which include but are not limited to: bleeding, infection, re-operation , damage to nerves and arteries, continued pain and DVT. The patient understands all of these instructions and explanations, all of their questions have been satisfactorily addressed. The patient has elected to proceed with surgery and the informed consent was signed. Description of Procedure The patient was taken to the Operating Room and placed in the supine position on the operating table. After general anesthetic was administered a multidisciplinary time-out was performed identifying my initials on the right limb as the correct and operative limb. Antibiotics were held as he has already receiving Vancomycin and Zosyn on a scheduled basis. The right leg was prepped and draped in the usual Orthopaedic sterile fashion. The patient's open wound over the volar aspect of the second toe near the MCP joint was cultured. We were able to express a pocket of purulent fluid by milking the plantar aspect of the foot. The open wound was initially irrigated with some normal saline. The planned dorsal incision to aid with mobilization of the skin for closure was injected with a 50:50 mixture of 1% lidocaine and 0.5 % Marcaine with epi for a total of 4cc. The dorsal skin that typically would be used for a flap to close the wound following amputation of the second toe did not appear healthy and instead to skin flaps were created on the medial and lateral border with what appeared to be healthy tissue. The devitalized skin around the open wound was excised sharply with a scalpel. There was devitalized, necrotic soft tissue, and any non-viable skin, soft tissue was removed with a combination of sharp dissection with the scalpel, curette, and rongeur. The remaining bone from the base of the second toe proximal phalanx was removed with rongeur and curettes. Fluoroscopy was brought in to ensure that the fragments completely removed. The wound was copiously irrigated with 500 cc of Betadine ophthalmic and normal saline mixed solution as well as another 1400 mL's of normal saline. Following irrigation and debridement there was healthy viable red beefy tissue that was bleeding. The articular surface of the metatarsal head appeared intact and was not soft when probing with a freer. The skin were closed with 3-0 Prolene. The lateral flap was brought to the most distal aspect of the wound. The medial aspect was rotated more proximally and to the midline of the wound. The 2 cm incision allowed for mobilization of the soft tissues and further closure of the wound. The wound was packed with quarter inch iodoform Gauze. The limb was cleaned and dried. The wound was covered Xerofoam, 4 x 4's, ABDs, sterile cast padding, Coban, and postop shoe. The sponge and needle counts were correct. POST-OP: Patient will be re-admitted to the medicine service and continued on IV Vancomycin and Zosyn until cultures and sensitivities have been evaluated by by Dr. Patel. He will be weightbearing as tolerated through his heel. I attest to the content of the Intraoperative Record and any orders documented therein. Any exceptions are noted below.
--- NOTE | 2016-11-20 12:01 | Anesthesiology Progress Note ---
Anesthesia Post Op Note Date & Time Nov 20, 2016 at 12:00 Vital Signs Pain Intensity: 0 Vital Signs Past 12 Hours Date Time Temp Pulse Resp B/P (MAP) Pulse Ox O2 Delivery O2 Flow Rate FiO2 11/20/16 11:51 160/76 11/20/16 11:49 88 21 11/20/16 11:49 87 21 100 11/20/16 11:45 156/80 11/20/16 11:44 87 21 100 11/20/16 11:44 86 26 100 11/20/16 11:41 148/66 11/20/16 11:35 145/74 11/20/16 11:34 81 11/20/16 11:34 36.1 81 16 145/74 100 Oxymask 10 11/20/16 11:34 81 100 11/20/16 07:30 Room Air 11/20/16 07:10 36.7 77 18 147/74 (98) 98 Room Air Notes Mental Status: alert / awake / arousable, participated in evaluation Pt Amnestic to Procedure: Yes Nausea / Vomiting: adequately controlled Pain: adequately controlled Airway Patency, RR, SpO2: stable & adequate BP & HR: stable & adequate Hydration State: stable & adequate Anesthetic Complications: no major complications apparent
--- NOTE | 2016-11-20 12:21 | Progress Note ---
Subjective Date of Service: Nov 20, 2016. Subjective Pt evaluation today including: conversation w/ patient, physical exam, chart review, lab review, review of studies, conversation w/ sap ppm consultant, review of inpatient medication list Agreeable to go to OR Pain controlled No acute events overnight Problem List Medical Problems: (1) Fracture of metatarsal bone Status: Acute (2) Infection Status: Acute (3) Osteomyelitis Status: Acute Review of Systems Constitutional: No fever, No chills, No sweats, No weakness Eyes: No worsening of vision, No eye pain, No redness, No discharge Respiratory: No cough, No sputum, No wheezing, No shortness of breath, No dyspnea on exertion Cardiac: No chest pain, No orthopnea, No PND, No edema Abdomen: No pain, No nausea, No vomiting, No diarrhea Musculoskeletal: + joint pain, No muscle pain, No swelling, No calf pain Male : No dysuria, No urinary frequency, No incontinence, No slowing stream Neurologic: No memory loss, No paralysis, No weakness, No numbness/tingling Psychiatric: No depression symptoms, No anhedonism, No anxiety, No insomnia Endo: No fatigue, No excessive thirst Skin: No rash, No itch Objective Vital Signs Date Time Temp Pulse Resp B/P (MAP) Pulse Ox O2 Delivery O2 Flow Rate FiO2 11/20/16 12:15 86 19 166/76 100 Nasal Cannula 2 11/20/16 12:10 36.1 87 22 159/83 100 Nasal Cannula 2 11/20/16 11:51 160/76 11/20/16 11:49 88 21 11/20/16 11:49 87 21 100 11/20/16 11:45 156/80 11/20/16 11:44 87 21 100 11/20/16 11:44 86 26 100 11/20/16 11:41 148/66 11/20/16 11:35 145/74 11/20/16 11:34 81 11/20/16 11:34 36.1 81 16 145/74 100 Oxymask 10 11/20/16 11:34 81 100 11/20/16 07:30 Room Air 11/20/16 07:10 36.7 77 18 147/74 (98) 98 Room Air 11/19/16 23:58 Room Air 11/19/16 23:08 36.8 81 16 125/69 (87) 98 Room Air 11/19/16 18:53 37.0 71 20 164/91 97 Room Air 11/19/16 18:29 37.0 71 20 164/91 (115) 97 Room Air 11/19/16 17:46 87 18 156/83 99 Room Air 11/19/16 16:45 83 16 128/76 100 Room Air 11/19/16 14:42 88 16 125/72 100 Room Air 11/19/16 13:10 36.7 93 20 133/65 93 Room Air Physical Exam General Appearance: WD/WN, no apparent distress Neck: supple, no adenopathy, thyroid normal, no JVD Respiratory/Chest: chest non-tender, lungs clear, normal breath sounds, no respiratory distress Cardiovascular: regular rate, rhythm, no edema, no gallop, no JVD Abdomen: normal bowel sounds, non tender, soft, no organomegaly Extremities: normal range of motion, non-tender, normal inspection, no pedal edema Neurologic/Psychiatric: no motor/sensory deficits, alert, normal mood/affect, oriented x 3 Laboratory Results Last 24 Hours Test 11/19/16 14:30 11/19/16 15:53 11/19/16 20:32 11/20/16 08:22 White Blood Count 16.87 K/uL 12.06 K/uL Red Blood Count 3.78 M/uL 3.93 M/uL Hemoglobin 12.1 g/dL 12.3 g/dL Hematocrit 35.2 % 36.6 % Mean Corpuscular Volume 93.1 fL 93.1 fL Mean Corpuscular Hemoglobin 32.0 pg 31.3 pg Mean Corpuscular Hemoglobin Concent 34.4 g/dl 33.6 g/dl Platelet Count 400 K/uL 351 K/uL Mean Platelet Volume 10.4 fL 10.0 fL Neutrophils (%) (Auto) 84.0 % 74.6 % Lymphocytes (%) (Auto) 7.8 % 13.8 % Monocytes (%) (Auto) 6.3 % 7.0 % Eosinophils (%) (Auto) 1.2 % 3.4 % Basophils (%) (Auto) 0.3 % 0.7 % Neutrophils # (Auto) 14.17 K/uL 8.99 K/uL Lymphocytes # (Auto) 1.32 K/uL 1.67 K/uL Monocytes # (Auto) 1.06 K/uL 0.84 K/uL Eosinophils # (Auto) 0.21 K/uL 0.41 K/uL Basophils # (Auto) 0.05 K/uL 0.09 K/uL RDW Standard Deviation 44.6 fL 44.2 fL RDW Coefficient of Variation 13.1 % 12.9 % Immature Granulocyte % (Auto) 0.4 % 0.5 % Immature Granulocyte # (Auto) 0.06 K/uL 0.06 K/uL Erythrocyte Sedimentation Rate 79 mm/hr Prothrombin Time 11.4 SECONDS Prothromb Time International Ratio 1.1 Sodium Level 136 mmol/L 135 mmol/L Potassium Level 4.5 mmol/L 4.4 mmol/L Chloride Level 102 mmol/L 102 mmol/L Carbon Dioxide Level 27 mmol/L 27 mmol/L Anion Gap 7.0 mmol/L 6.0 mmol/L Blood Urea Nitrogen 31 mg/dl 20 mg/dl Creatinine 1.20 mg/dl 1.00 mg/dl Est Creatinine Clear Calc Drug Dose 61.9 ml/min 77.4 ml/min Estimated GFR () 76.3 95.1 Estimated GFR (Non- 65.8 82.0 BUN/Creatinine Ratio 25.5 19.9 Random Glucose 209 mg/dl 148 mg/dl Estimated Average Glucose 166 mg/dl Hemoglobin A1c 7.4 % Calcium Level 8.9 mg/dl 8.6 mg/dl Total Bilirubin 0.6 mg/dl Aspartate Amino Transf (AST/SGOT) 20 U/L Alanine Aminotransferase (ALT/SGPT) 28 U/L Alkaline Phosphatase 95 U/L Total Protein 8.1 gm/dl Albumin 3.2 gm/dl Globulin 4.9 gm/dl Albumin/Globulin Ratio 0.7 Bedside Lactic Acid Venous 1.10 mmol/L Bedside Glucose 160 mg/dl C-Reactive Protein 9.98 mg/dl Test 11/20/16 08:33 11/20/16 11:37 Bedside Glucose 149 mg/dl 175 mg/dl Assessment and Plan Diabetic foot with osteomyelitis Cont Zosyn and vancomycin. Cultures have been taken, blood cultures and from his foot ID has been consulted Orthopedics consulted, may need MRI, but will need to go to OR for urgent debridement and likely partial amputation Uncontrolled type 2 diabetes. We will switch him over from his regimen of a basal insulin 70/30 to a Lantus log regimen. Check an A1c, his last one was actually 7.3 in May. Follow fingersticks and give supplemental insulin as needed. Hypertension. Continue his home medications. Obviously follow closely for anything but given that he is hypertensive despite his sepsis, will continue his antihypertensives. Diabetic nephropathy as evidenced by his prior microalbuminuria. His creatinine is 1.2 and this appears to be around his most recent baseline, so he may have a degree of stage II chronic kidney disease. Continue to follow. Follow daily basic metabolic panel at least until his situation is more stabilized. Deep venous thrombosis prophylaxis, Lovenox.
[2016-11-20] MEDS: CALCIUM POLYCARBOPHIL 1 TAB PO SCH (12:35)
[2016-11-20] MEDS: ASPIRIN 81 MG ECTAB PO SCH (12:35)
[2016-11-20] MEDS: HYDROCHLOROTHIAZIDE 50 MG TAB PO SCH (12:36)
[2016-11-20] MEDS: PYRIDOXINE HCL 50 MG TAB PO SCH (12:36)
[2016-11-20] MEDS: LISINOPRIL 40 MG TAB PO SCH (12:37)
[2016-11-20] MEDS: CHOLECALCIFEROL 1000 INTER.UNIT TAB PO SCH (12:37)
[2016-11-20] MEDS: INSULIN GLARGINE SOLOSTAR 100 UNITS/ML 3 ML PEN SC SCH (12:40)
[2016-11-20] MEDS: POTASSIUM CHLORIDE INJ 10 MEQ in SODIUM CHLORIDE 0.9% 1000ML 1,000 ML IV SCH ×2 (12:44→22:51)
[2016-11-20] MEDS ORDERED: SEVERE STRESS LEVEL ONE (21:00)
[2016-11-20] MEDS ORDERED: INSULIN PROTOCOL GOAL RANGE ONE (21:00)
[2016-11-20] MEDS ORDERED: DC ALL PREVIOUSLY ORDERED DIABETES MEDS ONE (21:00)
[2016-11-20] MEDS ORDERED: INSULIN ASPART 100 UNITS/ML 3 ML PEN SC SCH (21:00)
[2016-11-20] MEDS ORDERED: INSULIN IV INFUSION PROTOCOL SCH (21:15)
[2016-11-20] MEDS ORDERED: INSULIN REGULAR 250 UNITS in SODIUM CHLORIDE 0.9% 250ML 250 ML IV SCH (21:27)
[2016-11-20] MEDS ORDERED: INSULIN HUMAN REGULAR IV BOLUS 3 UNIT in SYRINGE 0 ML IV SCH (21:30)
[2016-11-20] MEDS ORDERED: INSULIN GLARGINE SOLOSTAR 100 UNITS/ML 3 ML PEN SC ONE (22:34)
[2016-11-20] MEDS ORDERED: INSULIN ASPART 100 UNITS/ML 3 ML PEN SC ONE (22:34)
[2016-11-20] MEDS: ENOXAPARIN 40 MG/0.4 ML SYR SQ SCH (23:19)
[2016-11-21] MEDS ORDERED: VANCOMYCIN TROUGH SCH (03:30)
[2016-11-21 03:43] VITALS: BP 153/79; PULSE 83; TEMP 36.4; O2SAT 96
[2016-11-21] MEDS: VANCOMYCIN INJ 1,250 MG in SODIUM CHLORIDE 0.9% 250ML 250 ML IV SCH ×2 (03:43→16:29)
[2016-11-21 03:51] LABS: HEMATOCRIT 33.6 % (42-52); MEAN CELL VOLUME 92.1 fL (80-100); MEAN CORPUSCULAR HEMOGLOBIN 30.7 pg (25-34); MEAN CORPUSCULAR HGB CONC 33.3 g/dl (32-36); PLATELET COUNT 354 K/uL (130-400); RED BLOOD COUNT 3.65 M/uL (4.7-6.1); WHITE BLOOD COUNT 14.26 K/uL (4.8-10.8)
[2016-11-21 04:11] LABS: BUN/CREATININE RATIO 14.1 (10-20); CALCIUM 8.3 mg/dl (8.5-10.1); CREATININE 1.2 mg/dl (0.60-1.40); POTASSIUM 4.3 mmol/L (3.5-5.1)
[2016-11-21] MEDS: POTASSIUM CHLORIDE INJ 10 MEQ in SODIUM CHLORIDE 0.9% 1000ML 1,000 ML IV SCH ×2 (06:28→16:29)
[2016-11-21] MEDS: PIPERACILL/TAZOBAC IV 3.375 GM in DEXTROSE 5% 100ML 100 ML IV SCH ×3 (06:28→21:58)
[2016-11-21 07:25] VITALS: BP 164/81; PULSE 80; TEMP 36.6; O2SAT 98
--- NOTE | 2016-11-21 09:06 | Orthopedic Progress Note ---
Orthopedic Progress Note Date of Service Nov 21, 2016. Subjective Post OP Day: 1 Reports: feeling well, complaints (Patient wants to know if, "Can I take the shoe off and cover the toes with a sock?") Objective calves soft nontender, dressing C/D/I, A&O x3 Date Time Temp Pulse Resp B/P (MAP) Pulse Ox O2 Delivery O2 Flow Rate FiO2 11/21/16 07:30 Room Air 11/21/16 07:25 36.6 80 19 164/81 (108) 98 Room Air 11/21/16 03:43 36.4 83 16 153/79 (103) 96 Room Air 11/20/16 23:36 Room Air 11/20/16 22:55 36.5 110 18 152/75 (100) 93 Room Air 11/20/16 19:12 36.9 97 18 127/76 (93) 96 Room Air 11/20/16 15:55 Room Air 11/20/16 15:35 36.9 96 18 150/77 (101) 96 Room Air 11/20/16 15:18 36.8 96 18 130/77 (94) 96 Room Air 11/20/16 14:00 36.6 96 20 161/77 (105) 97 Room Air 11/20/16 13:34 37.2 96 19 112/66 (81) 97 Nasal Cannula 2.0 11/20/16 13:00 36.5 94 16 171/78 (109) 98 Room Air 11/20/16 12:30 100 Nasal Cannula 2.0 11/20/16 12:30 100 Nasal Cannula 2.0 11/20/16 12:30 36.5 88 18 165/81 (109) 100 Nasal Cannula 2.0 11/20/16 12:15 86 19 166/76 100 Nasal Cannula 2 11/20/16 12:10 36.1 87 22 159/83 100 Nasal Cannula 2 11/20/16 11:51 160/76 11/20/16 11:49 88 21 11/20/16 11:49 87 21 100 11/20/16 11:45 156/80 11/20/16 11:44 87 21 100 11/20/16 11:44 86 26 100 11/20/16 11:41 148/66 11/20/16 11:35 145/74 11/20/16 11:34 81 11/20/16 11:34 36.1 81 16 145/74 100 Oxymask 10 11/20/16 11:34 81 100 Laboratory Results 24 Hours: Test 11/21/16 03:33 Hematocrit 33.6 % Hemoglobin 11.2 g/dL RUN DATE: 11/21/16 [facility] LAB PAGE 1 RUN TIME: 0846 Specimen Inquiry PATIENT: ANDRY MONSON LOC: JERALD U # : [id number] AGE/SX: 61/M ROOM: [facility] REG : 11/19/[address]: Kenny Tian D.O : 1955 BED: 2 DIS : STATUS: ADM IN TLOC: SPEC #: [id number] SAM: 11/20/16-1000 STATUS: RES REQ #: [id number] RECD: 11/20/16-[address]: Kenny Tian D.O. SOURCE: INC.SITE ENTR: 11/20/16-[address] [facility] DR: Swapnil Patel MD SPDESC: TOE R2 Stefano Sheffield M.D. Maurer, Candace, C.R.N.P Ridenour, Ryan, D.O. Shaw, Mark R., DO ORDERED: AER/FIGUEROA CULTSMR COMMENTS: RIGHT SECOND TOE OSTEOMYELITIS-SEPTIC PATIENT Procedure Result Verified Site GRAM STAIN Final 11/21/16-845 RESULT MANY WBCs SEEN MANY GRAM POSITIVE COCCI MANY GRAM NEGATIVE BACILLI FEW GRAM POSITIVE BACILLI FEW EPITHELIAL CELLS OR AER/FIGUEROA CULT Preliminary 11/21/16 Organism 1 GRAM NEGATIVE BACILLI QUANITY MODERATE SENS SENSITIVITY TO FOLLOW RUN DATE: 11/21/16 [facility] LAB PAGE 1 RUN TIME: 701 Specimen Inquiry PATIENT: ANDRY MONSON Lesly LOC: JERALD U # : [id number] AGE/SX: 61/M ROOM: [facility] REG : 11/19/[address]: Kenny Tian D.O : 1955 BED: 2 DIS : STATUS: ADM IN TLOC: SPEC #: [id number] SAM: 11/19/16 STATUS: RES REQ #: [id number] RECD: 11/19/[address]: Beverly Gayle DO SOURCE: DRAIN-DEEP ENTR: 11/19/[address]: Neda Meeks C.R.N.P SPDESC: FOOT RIGHT ORDERED: DEP WND CUL/SMR COMMENTS: Has Specimen Been Obtained/Collected? Y Procedure Result Verified Site GRAM STAIN Final 11/20/16 RESULT MANY WBCs SEEN FEW EPITHELIAL CELLS MANY GRAM POSITIVE COCCI FEW GRAM POSITIVE BACILLI FEW GRAM NEGATIVE BACILLI DEEP WOUND CULTURE Preliminary 11/21/16 Organism 1 PROTEUS MIRABILIS QUANITY MANY SENS SENSITIVITY TO FOLLOW 1. PROTEUS MIRABILIS Target Route Dose RX AB Cost M.I.C. IQ ------ ----- ------ -- ------ -------- - ------ TRIMET/SULFA R > AMPICILLIN R >16 AMPICILLIN/SUL I 16/8 CEFAZOLIN R >16 CEFOTAXIME S <=2 CEFTRIAXONE S <=1 CEFEPIME S <=4 CEFUROXIME R >16 GENTAMICIN S <=4 TOBRAMYCIN S <=4 AMIKACIN S <=16 CIPROFLOXACIN S <=1 LEVOFLOXACIN S <=2 ERTAPENEM S <=1 PIP/TAZO S <=16 S = SENSITIVE I = INTERMEDIATE R = RESISTANT Assessment & Plan Assessment: POD # 1, s/p Right foot I&D, amputation R 2nd toe due to open wound R foot and osteomyelitis, doing as well as expected. Plan: Continue with IV Vancomycin & Zosyn. Awaiting full Cx & S and then ID input on Abx coverage and duration of treatment. WBAT through heel in post-op shoe. May remove the post-op shoe otherwise. May cover dressing with sock. Plan to change dressing and packing 11/22/2016. Continue pain control. PT/OT. D/C planning. DVT prophylaxis: ASA Continue care per primary service.
[2016-11-21] MEDS ORDERED: INSULIN ASPART 100 UNITS/ML 3 ML PEN SC SCH (09:15)
[2016-11-21] MEDS: CHOLECALCIFEROL 1000 INTER.UNIT TAB PO SCH (09:25)
[2016-11-21] MEDS: CALCIUM POLYCARBOPHIL 1 TAB PO SCH (09:25)
[2016-11-21] MEDS: LISINOPRIL 40 MG TAB PO SCH (09:26)
[2016-11-21] MEDS: HYDROCHLOROTHIAZIDE 50 MG TAB PO SCH (09:26)
[2016-11-21] MEDS: ASPIRIN 81 MG ECTAB PO SCH (09:26)
[2016-11-21] MEDS: PYRIDOXINE HCL 50 MG TAB PO SCH (09:26)
[2016-11-21] MEDS: INSULIN ASPART 100 UNITS/ML 3 ML PEN SC SCH ×4 (09:31→21:00)
[2016-11-21] MEDS: INSULIN GLARGINE SOLOSTAR 100 UNITS/ML 3 ML PEN SC SCH (09:32)
--- NOTE | 2016-11-21 15:30 | Pharmacy Progress Note ---
Pharmacy Antibiotic Prog Note Date of Service Nov 21, 2016. Subjective The patient is currently receiving vancomycin 1250 mg IV every 12 hours and Zosyn 3.375gm IV q 8 hrs. The patient is currently on day # 3/10 of vanc/Zosyn IV therapy. Objective Height (Feet): 5 Height (Inches): 5.00 Weight (Kilograms): 79.800 Lab Results (24hrs): Test 11/21/16 03:33 11/21/16 08:16 11/21/16 12:12 White Blood Count 14.26 K/uL (4.8-10.8) Red Blood Count 3.65 M/uL (4.7-6.1) Hemoglobin 11.2 g/dL (14.0-18.0) Hematocrit 33.6 % (42-52) Mean Corpuscular Volume 92.1 fL (80-100) Mean Corpuscular Hemoglobin 30.7 pg (25-34) Mean Corpuscular Hemoglobin Concent 33.3 g/dl (32-36) RDW Standard Deviation 43.4 fL (36.4-46.3) RDW Coefficient of Variation 12.9 % (11.5-14.5) Platelet Count 354 K/uL (130-400) Mean Platelet Volume 10.0 fL (7.4-10.4) Sodium Level 137 mmol/L (136-145) Potassium Level 4.3 mmol/L (3.5-5.1) Chloride Level 102 mmol/L (98-107) Carbon Dioxide Level 30 mmol/L (21-32) Anion Gap 5.0 mmol/L (3-11) Blood Urea Nitrogen 17 mg/dl (7-18) Creatinine 1.20 mg/dl (0.60-1.40) Est Creatinine Clear Calc Drug Dose 64.5 ml/min Estimated GFR () 76.3 Estimated GFR (Non- 65.8 BUN/Creatinine Ratio 14.1 (10-20) Random Glucose 220 mg/dl (70-99) Calcium Level 8.3 mg/dl (8.5-10.1) Vancomycin Level Trough 15.3 mcg/ml (SEE COMMENT) Bedside Glucose 175 mg/dl (70-99) 131 mg/dl (70-99) Micro Results: UN DATE: 11/21/16 [facility] LAB PAGE 1 RUN TIME: 2198 Specimen Inquiry PATIENT: ANDRY MONSON LOC: JERALD U # : [id number] AGE/SX: 61/M ROOM: [facility] REG : 11/19/[address]: Kenny Tian D.O : 1955 BED: 2 DIS : STATUS: ADM IN TLOC: SPEC #: [id number] SAM: 11/20/16 STATUS: RES REQ #: [id number] RECD: 11/20/16-[address]: Kenny Tian D.O. SOURCE: INC.SITE ENTR: 11/20/16-1023 [facility] DR: Swapnil Patel MD [facility]: TOE R2 Stefano Sheffield M.D. Maurer, Candace, C.R.N.P Ridenour, Ryan, D.O. Shaw, Mark R., DO ORDERED: AER/FIGUEROA CULTSMArlet COMMENTS: RIGHT SECOND TOE OSTEOMYELITIS-SEPTIC PATIENT Procedure Result Verified Site GRAM STAIN Final 11/21/16 RESULT MANY WBCs SEEN MANY GRAM POSITIVE COCCI MANY GRAM NEGATIVE BACILLI FEW GRAM POSITIVE BACILLI FEW EPITHELIAL CELLS OR AER/FIGUEROA CULT Preliminary 11/21/16 Organism 1 GRAM NEGATIVE BACILLI QUANITY MODERATE SENS SENSITIVITY TO FOLLOW SPEC #: [id number] SAM: 11/19/16 STATUS: RES REQ #: [id number] RECD: 11/19/[address]: Beverly Gayle DO SOURCE: DRAIN-DEEP ENTR: 11/19/[address]: Neda Meeks C.RAleNAleP SPDESC: FOOT RIGHT ORDERED: DEP WND CUL/SMR COMMENTS: Has Specimen Been Obtained/Collected? Y Procedure Result Verified Site GRAM STAIN Final 11/20/16-802 RESULT MANY WBCs SEEN FEW EPITHELIAL CELLS MANY GRAM POSITIVE COCCI FEW GRAM POSITIVE BACILLI FEW GRAM NEGATIVE BACILLI DEEP WOUND CULTURE Preliminary 11/21/16-151 Organism 1 PROTEUS MIRABILIS QUANITY MANY SENS SENSITIVITY TO FOLLOW Organism 2 ALPHA STREP. NOT ENTEROCOCCUS QUANITY MODERATE SENS NO SENSITIVITY TO FOLLOW 1. PROTEUS MIRABILIS Target Route Dose RX AB Cost M.I.C. IQ ------ ----- ------ -- ------ -------- - ------ TRIMET/SULFA R >/ AMPICILLIN R >16 AMPICILLIN/SUL I 16/8 CEFAZOLIN R >16 CEFOTAXIME S <=2 CEFTRIAXONE S <=1 CEFEPIME S <=4 CEFUROXIME R >16 GENTAMICIN S <=4 TOBRAMYCIN S <=4 AMIKACIN S <=16 CIPROFLOXACIN S <=1 LEVOFLOXACIN S <=2 ERTAPENEM S <=1 PIP/TAZO S <=16 S = SENSITIVE I = INTERMEDIATE R = RESISTANT END OF REPORT Assessment & Plan Vancomycin trough this AM: 15.3mcg/ml This level is Therapeutic; even though at the low end of goal, expect levels to rise moderately with continued dosing. Continue vancomycin 1250 mg IV every 12 hours. Goal trough level estimate: between 15 - 20 mcg/mL for osteo. Trough level has been ordered for: 11/23 prior to 0400 dose. Pharmacy will continue to follow and will adjust dose/frequency as necessary. Thank you
[2016-11-21 15:31] VITALS: BP 133/79; PULSE 78; TEMP 36.9; O2SAT 96
--- NOTE | 2016-11-21 18:08 | Progress Note ---
Subjective Date of Service: Nov 21, 2016. Subjective Pt evaluation today including: conversation w/ patient, physical exam, chart review, lab review, review of studies, review of inpatient medication list Pt resting comfortably in bed Denies any pain No acute events overnight Problem List Medical Problems: (1) Fracture of metatarsal bone Status: Acute (2) Infection Status: Acute (3) Osteomyelitis Status: Acute Review of Systems Constitutional: No fever, No chills, No sweats, No weakness Respiratory: No cough, No sputum, No wheezing, No shortness of breath Cardiac: No chest pain, No orthopnea, No PND, No edema Abdomen: No pain, No nausea, No vomiting, No diarrhea, No constipation Musculoskeletal: No joint pain, No muscle pain, No swelling, No calf pain Male : No dysuria, No urinary frequency, No incontinence, No slowing stream Neurologic: No memory loss, No paralysis, No weakness, No numbness/tingling Psychiatric: No depression symptoms, No anhedonism, No anxiety, No insomnia Endo: No fatigue, No excessive thirst Skin: No rash, No itch Objective Vital Signs Date Time Temp Pulse Resp B/P (MAP) Pulse Ox O2 Delivery O2 Flow Rate FiO2 11/21/16 16:20 Room Air 11/21/16 15:31 36.9 78 18 133/79 (97) 96 Room Air 11/21/16 07:30 Room Air 11/21/16 07:25 36.6 80 19 164/81 (108) 98 Room Air 11/21/16 03:43 36.4 83 16 153/79 (103) 96 Room Air 11/20/16 23:36 Room Air 11/20/16 22:55 36.5 110 18 152/75 (100) 93 Room Air 11/20/16 19:12 36.9 97 18 127/76 (93) 96 Room Air Physical Exam General Appearance: WD/WN, no apparent distress Eyes: normal inspection, PERRL, EOMI, sclerae normal Neck: supple, no adenopathy, thyroid normal, no JVD Cardiovascular: regular rate, rhythm, no edema, no gallop, no JVD Abdomen: normal bowel sounds, non tender, soft, no organomegaly Neurologic/Psychiatric: no motor/sensory deficits, alert, normal mood/affect, oriented x 3 Laboratory Results Last 24 Hours Test 11/20/16 20:21 11/20/16 21:38 11/20/16 23:21 11/21/16 03:33 Bedside Glucose 305 mg/dl 262 mg/dl 253 mg/dl White Blood Count 14.26 K/uL Red Blood Count 3.65 M/uL Hemoglobin 11.2 g/dL Hematocrit 33.6 % Mean Corpuscular Volume 92.1 fL Mean Corpuscular Hemoglobin 30.7 pg Mean Corpuscular Hemoglobin Concent 33.3 g/dl RDW Standard Deviation 43.4 fL RDW Coefficient of Variation 12.9 % Platelet Count 354 K/uL Mean Platelet Volume 10.0 fL Sodium Level 137 mmol/L Potassium Level 4.3 mmol/L Chloride Level 102 mmol/L Carbon Dioxide Level 30 mmol/L Anion Gap 5.0 mmol/L Blood Urea Nitrogen 17 mg/dl Creatinine 1.20 mg/dl Est Creatinine Clear Calc Drug Dose 64.5 ml/min Estimated GFR () 76.3 Estimated GFR (Non- 65.8 BUN/Creatinine Ratio 14.1 Random Glucose 220 mg/dl Calcium Level 8.3 mg/dl Vancomycin Level Trough 15.3 mcg/ml Test 11/21/16 08:16 11/21/16 12:12 11/21/16 16:57 Bedside Glucose 175 mg/dl 131 mg/dl 156 mg/dl Assessment and Plan POD # 1, s/p Right foot I&D, amputation R 2nd toe due to open wound R foot and osteomyelitis, Cont Zosyn and vancomycin. Cultures have been taken, blood cultures and from his foot ID has been consulted, await cx at this time Uncontrolled type 2 diabetes. We will switch him over from his regimen of a basal insulin 70/30 to a Lantus log regimen. Check an A1c, his last one was actually 7.3 in May. Follow fingersticks and give supplemental insulin as needed. Hypertension. Continue his home medications. Obviously follow closely for anything but given that he is hypertensive despite his sepsis, will continue his antihypertensives. Diabetic nephropathy as evidenced by his prior microalbuminuria. His creatinine is 1.2 and this appears to be around his most recent baseline, so he may have a degree of stage II chronic kidney disease. Continue to follow. Follow daily basic metabolic panel at least until his situation is more stabilized. Deep venous thrombosis prophylaxis, Lovenox.
[2016-11-21] MEDS: ENOXAPARIN 40 MG/0.4 ML SYR SQ SCH (21:58)
[2016-11-21] MEDS ORDERED: NURSING VERBAL MED ORDER ONE (22:00)
[2016-11-21 23:12] VITALS: BP 149/76; PULSE 78; TEMP 36.9; O2SAT 96
[2016-11-22] MEDS: POTASSIUM CHLORIDE INJ 10 MEQ in SODIUM CHLORIDE 0.9% 1000ML 1,000 ML IV SCH ×2 (01:47→12:47)
[2016-11-22] MEDS: VANCOMYCIN INJ 1,250 MG in SODIUM CHLORIDE 0.9% 250ML 250 ML IV SCH ×2 (03:35→17:37)
[2016-11-22] MEDS: PIPERACILL/TAZOBAC IV 3.375 GM in DEXTROSE 5% 100ML 100 ML IV SCH ×2 (05:34→14:15)
[2016-11-22 05:56] LABS: HEMATOCRIT 30.8 % (42-52); MEAN CELL VOLUME 93.9 fL (80-100); MEAN CORPUSCULAR HEMOGLOBIN 31.1 pg (25-34); MEAN CORPUSCULAR HGB CONC 33.1 g/dl (32-36); MEAN PLATELET VOLUME 9.9 fL (7.4-10.4); PLATELET COUNT 315 K/uL (130-400); RED BLOOD COUNT 3.28 M/uL (4.7-6.1); WHITE BLOOD COUNT 12.17 K/uL (4.8-10.8)
[2016-11-22 06:29] LABS: BUN/CREATININE RATIO 16.7 (10-20); CALCIUM 7.7 mg/dl (8.5-10.1); POTASSIUM 4.3 mmol/L (3.5-5.1)
[2016-11-22 07:41] VITALS: BP 184/92; PULSE 81; TEMP 36.9; O2SAT 98
[2016-11-22 08:12] VITALS: O2SAT 98
[2016-11-22] MEDS: ASPIRIN 81 MG ECTAB PO SCH (08:28)
[2016-11-22] MEDS: CALCIUM POLYCARBOPHIL 1 TAB PO SCH (08:28)
[2016-11-22] MEDS: CHOLECALCIFEROL 1000 INTER.UNIT TAB PO SCH (08:28)
[2016-11-22] MEDS: LISINOPRIL 40 MG TAB PO SCH (08:28)
[2016-11-22] MEDS: PYRIDOXINE HCL 50 MG TAB PO SCH (08:29)
[2016-11-22] MEDS: HYDROCHLOROTHIAZIDE 50 MG TAB PO SCH (08:29)
[2016-11-22] MEDS: INSULIN ASPART 100 UNITS/ML 3 ML PEN SC SCH ×3 (08:33→18:28)
[2016-11-22] MEDS: INSULIN GLARGINE SOLOSTAR 100 UNITS/ML 3 ML PEN SC SCH (08:34)
--- NOTE | 2016-11-22 12:03 | Progress Note ---
Subjective Date of Service: Nov 22, 2016. Subjective Pt evaluation today including: conversation w/ patient, physical exam, chart review, lab review pt tolerating abx. wound culture with proteus and S. aureus, final pending. states OR dressing remains, awaiting decision regarding additional surgery. No f /c. no abd pain, no n/v/d/. wbc improving, blood cultures negative. All remaining ros reviewed and are negative. Problem List Medical Problems: (1) Fracture of metatarsal bone Status: Acute (2) Infection Status: Acute (3) Osteomyelitis Status: Acute Objective Vital Signs Date Time Temp Pulse Resp B/P (MAP) Pulse Ox O2 Delivery O2 Flow Rate FiO2 11/22/16 08:12 98 Room Air 11/22/16 07:41 36.9 81 18 184/92 (122) 98 Room Air 11/22/16 07:30 Room Air 11/21/16 23:45 Room Air 11/21/16 23:12 36.9 78 16 149/76 (100) 96 Room Air 11/21/16 16:20 Room Air 11/21/16 15:31 36.9 78 18 133/79 (97) 96 Room Air Physical Exam General Appearance: WD/WN, no apparent distress Eyes: normal inspection, EOMI Neck: supple Respiratory/Chest: lungs clear, normal breath sounds, no respiratory distress Cardiovascular: regular rate, rhythm, no edema Abdomen: soft Extremities: non-tender Neurologic/Psychiatric: alert, oriented x 3 Skin: normal color Comments: foot dressing c/d/i Laboratory Results Item Value Date Time Gram Stain - Final Resulted 11/20/16 1001 Incision Site Toe Right 2 Gram Stain - Final Resulted 11/19/16 1439 Drainage-Deep Foot Right Blood Culture - Preliminary Resulted 11/19/16 1430 Blood NO GROWTH TO DATE. Blood Culture - Preliminary Resulted 11/19/16 1430 Blood NO GROWTH TO DATE. Last 24 Hours Test 11/21/16 12:12 11/21/16 16:57 11/21/16 20:48 11/21/16 23:43 Bedside Glucose 131 mg/dl 156 mg/dl 84 mg/dl 79 mg/dl Test 11/22/16 01:45 11/22/16 05:13 Bedside Glucose 96 mg/dl White Blood Count 12.17 K/uL Red Blood Count 3.28 M/uL Hemoglobin 10.2 g/dL Hematocrit 30.8 % Mean Corpuscular Volume 93.9 fL Mean Corpuscular Hemoglobin 31.1 pg Mean Corpuscular Hemoglobin Concent 33.1 g/dl RDW Standard Deviation 44.5 fL RDW Coefficient of Variation 13.0 % Platelet Count 315 K/uL Mean Platelet Volume 9.9 fL Sodium Level 141 mmol/L Potassium Level 4.3 mmol/L Chloride Level 107 mmol/L Carbon Dioxide Level 30 mmol/L Anion Gap 4.0 mmol/L Blood Urea Nitrogen 17 mg/dl Creatinine 1.00 mg/dl Est Creatinine Clear Calc Drug Dose 77.4 ml/min Estimated GFR () 95.1 Estimated GFR (Non- 82.0 BUN/Creatinine Ratio 16.7 Random Glucose 105 mg/dl Calcium Level 7.7 mg/dl
--- NOTE | 2016-11-22 14:23 | Progress Note ---
Orthopedic SOAP Note Subjective Date of Service: Nov 22, 2016. 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 Problem List Medical Problems: (1) Fracture of metatarsal bone Status: Acute (2) Infection Status: Acute (3) Osteomyelitis Status: Acute Objective calves soft nontender, N/V intact, capillary refill less than 2 sec., dressing C /D/I, incision C/D/I (otherwise looks great, no further need for surgical intervention at this time.), A&O x3, toes mobile (2nd right toe: amputation noted, packing removed, no current drainage or surrounding erythema, minimal swelling, sutures well placed and intact, toe actively mobile, distal pulse +2) Date Time Temp Pulse Resp B/P (MAP) Pulse Ox O2 Delivery O2 Flow Rate FiO2 11/22/16 08:12 98 Room Air 11/22/16 07:41 36.9 81 18 184/92 (122) 98 Room Air 11/22/16 07:30 Room Air 11/21/16 23:45 Room Air 11/21/16 23:12 36.9 78 16 149/76 (100) 96 Room Air 11/21/16 16:20 Room Air 11/21/16 15:31 36.9 78 18 133/79 (97) 96 Room Air Laboratory Results 24 Hours: Test 11/22/16 05:13 Hematocrit 30.8 % Hemoglobin 10.2 g/dL Additional Notes: Date/Time Source Procedure Growth Status 11/19/16 14:30 Blood Blood Culture - Preliminary NO GROWTH TO DATE. Resulted 11/19/16 14:30 Blood Blood Culture - Preliminary NO GROWTH TO DATE. Resulted 11/20/16 10:01 Incision Site Toe Right 2 Gram Stain - Final Resulted 11/20/16 10:01 Bacterial Culture - Preliminary Proteus Vulgaris Staphylococcus Aureus Resulted 11/19/16 14:39 Drainage-Deep Foot Right Gram Stain - Final Resulted 11/19/16 14:39 Wound Culture - Preliminary Proteus Mirabilis Alpha Strep. Not Enterococcus Staphylococcus Aureus Probable Lindsey Gram Neg Bacilli Resulted Assessment POD # 3, s/p Right foot I&D, amputation R 2nd toe due to open wound R foot and osteomyelitis, doing as well as expected. Plan Continue with IV Vancomycin & Zosyn. Culture and sensitivities back, awaiting Dr. Busch's recommendation regarding home ABX WBAT through heel in post-op shoe. May remove the post-op shoe otherwise. May cover dressing with sock. Changed dressing and packing 11/22/2016. New 1/4" Iodoform packing placed back in the wound, tolerated well. Continue pain control. Continue diet. Ice/elevate as needed. PT/OT. D/C planning. DVT prophylaxis: ASA Continue care per primary service, will utilize home health for dressing changes. Will require 3 more days of packing changes using 1/4" Iodoform packing. Orthopedically stable, may be discharged home with home health once Dr. Busch provides ABX recommendation I, Dr. Coreas, saw and examined the patient and discussed the management with my PA. I reviewed my PAs note and agree with the documented findings and the plan of care I developed.
--- NOTE | 2016-11-22 14:40 | Consultant Recommendations ---
Singer Songwriter Recommendations Date of Service Nov 22, 2016. Singer Songwriter Recommendations Continue to elevate and ice your right foot as needed. Please keep your dressing on your foot clean, dry, and intact. Allow home health to change your dressing accordingly. Will require 3 more days of packing changes using 1/4" packing. Pain control with prescribed medications. Antibiotics per Infectious Disease Dr. Jenn Busch. Please follow-up with Dr. Coreas at [facility] for a 1 week post- operative follow-up and wound check. -Call our office at [phone] to make appointment. You may weightbear as tolerated through your heel while wearing your post-op shoe.
[2016-11-22 15:45] VITALS: BP 172/80; PULSE 81; TEMP 36.4; O2SAT 98
[2016-11-22 16:43] VITALS: BP 164/74
[2016-11-22] MEDS ORDERED: LEVO1TAB35 PO (16:59)
--- NOTE | 2016-11-22 17:00 | Discharge Instructions ---
Discharge Instructions Date of Service Nov 22, 2016. Admission Reason for Admission: Osteomyelitis Discharge Discharge Diagnosis / Problem: diabetic foot infection with amputation Discharge Goals Goal(s): Diagnostic testing, Therapeutic intervention Activity Recommendations Activity Limitations: resume your previous activity Please follow up with [facility] in one week keep foot elevated as much as possible, avoid getting wet wash daily with soap and water and change dressing to incude xeroform( yellow vaseline guaze) you may use tylenol for pain You will not need your antibiotic until tomorrow 11/23 evening . Current Hospital Diet Patient's current hospital diet: Diabetes Type 2 Diet Discharge Diet Recommended Diet: Low Sodium Diet (2gm Na), Diabetes Type 2 Diet Procedures Procedures Performed: Right second toe incision and drainage, 2nd toe amputation Pending Studies Studies pending at discharge: no Laboratory Results Hemoglobin A1c Test 11/19/16 14:30 Range/Units Estimated Average Glucose 166 mg/dl Hemoglobin A1c 7.4 H 4.5-5.6 % Medical Emergencies . Who to Call and When: Medical Emergencies: If at any time you feel your situation is an emergency, please call 911 immediately. . Non-Emergent Contact Non-Emergency issues call your: Primary Care Provider, Surgeon Call Non-Emergent contact if: temperature is above 101, your pain is unusual for you . . "Provider Documentation" section prepared by Erwin Dominguez. . [employer]r Recommendations [employer]r Recommendations: Continue to elevate and ice your right foot as needed. Please keep your dressing on your foot clean, dry, and intact. Allow home health to change your dressing accordingly. Will require 3 more days of packing changes using 1/4" Iodoform packing. Pain control with prescribed medications. Oral antibiotics per Infectious Disease Dr. Jenn Busch. Please follow-up with Dr. Coreas at [facility] for a 1 week post- operative follow-up and wound check. -Call our office at [phone] to make appointment. You may weightbear as tolerated through your heal while wearing your post-op shoe. VTE Core Measure Inpt VTE Proph given/why not?: Unfractionated heparin SQ
[2016-11-22] MEDS ORDERED: LEVOFLOXACIN 750 MG TAB PO STA (17:03)
[2016-11-22 18:42] VITALS: BP 164/74; PULSE 81; TEMP 36.4; O2SAT 98
--- NOTE | 2016-11-22 19:14 | Discharge Summary ---
Discharge Summary Date of Service Nov 22, 2016. Discharge Summary Admission Date: Nov 19, 2016 at 17:35 Discharge Date: Nov 22, 2016 Discharge Disposition: Home with services Principal Diagnosis: diabetic osteomyelitis with right second toe of dictation Procedures: Right second toe amputation performed by Dr. Coreas Infectious disease consult Dr. Busch Medication Reconciliation New Medications: Levofloxacin (Levaquin) 750 Mg Tab 750 MG PO DAILY, #14 TAB Continued Medications: Aspirin (Aspirin Ec) 81 Mg Tab 81 MG PO DAILY Calcium Polycarbophil (Fiber-Caps) 625 Mg Tab 625 MG PO DAILY Cholecalciferol (Vitamin D3) 2,000 Unit Cap 2000 UNITS PO DAILY for 90 Days, CAP 3 Refills Hydrochlorothiazide (Hctz) 50 Mg Tab 50 MG PO DAILY, TAB Insulin Aspart 70/30 (Novolog Mix 70/30) Susp 35 UNITS SC before supper, BTL Insulin Detemir (Levemir Flextouch) 100 Unit/Ml Inj 55 UNITS SQ QAM Lisinopril (Lisinopril) 40 Mg Tab 40 MG PO DAILY Pyridoxine Hcl (Vitamin B6) 100 Mg Tab 100 MG PO DAILY, TAB Discharge Exam Review of Systems: Constitutional: No fever, No chills Cardiovascular: No chest pain, No orthopnea, No PND Abdomen: No pain, No nausea, No vomiting, No diarrhea Musculoskeletal: No joint pain, No muscle pain Physical Exam: General Appearance: WD/WN, no apparent distress Eyes: PERRL, EOMI Neck: supple, no JVD Respiratory/Chest: chest non-tender, lungs clear, normal breath sounds Cardiovascular: regular rate, rhythm, no murmur Abdomen / GI: normal bowel sounds, soft Hospital Course 61-year-old male with long-standing diabetic perfusion and neuropathy including Charcot joint presented with dry gangrene of right second toe that is post amputation doing well. Patient's wound grew both Proteus and alpha strep these seems sensitive to quinolones he was seen in consultation by infectious disease who felt levofloxacin would be a reasonable choice. Patient was given 1 dose levofloxacin 750 prior to discharge to take his oral doses starting on 11/23 The patient was seen and had his wound dressed at the day of discharge by the orthopedic team he'll continue with likely wound care consultation. His diabetes was controlled with basal bolus but he'll return to 70/30 insulin at discharge The patient was offered pain controllable with his neuropathy he requests none Aches and will initially follow up with his primary care physicians to coordinate wound care and orthopedic follow-up Total Time Spent: Greater than 30 minutes This includes examination of the patient, discharge planning, medication reconciliation, and communication with other providers. Discharge Instructions Please refer to the electronic Patient Visit Report (Discharge Instructions) for additional information.
== END 2016-11-22 18:45 | disposition home health service (06) | DRG 617 ==
LOC: C.EDB 12:54 → C.MSW 17:35 → ENRESERV 17:43
PROVIDERS: ADMIT Family Medicine; ATTEND Internal Medicine
PROC: 0Y6R0Z0 Detachment at Right 2nd Toe, Complete, Open Approach (ICD-10-PCS; principal; 2016-11-20 08:32)
DX: E11.69 Type 2 diabetes mellitus with other specified complication (principal); M86.171 Other acute osteomyelitis, right ankle and foot; E11.52 Type 2 diabetes mellitus with diabetic peripheral angiopathy with gangrene; B96.4 Proteus (mirabilis) (morganii) as the cause of diseases classified elsewhere; B95.4 Other streptococcus as the cause of diseases classified elsewhere; E11.610 Type 2 diabetes mellitus with diabetic neuropathic arthropathy; E11.65 Type 2 diabetes mellitus with hyperglycemia; S99.921A Unspecified injury of right foot, initial encounter; E86.0 Dehydration; E11.42 Type 2 diabetes mellitus with diabetic polyneuropathy; I10 Essential (primary) hypertension; Z51.81 Encounter for therapeutic drug level monitoring; Z79.899 Other long term (current) drug therapy; Z79.4 Long term (current) use of insulin; Z79.82 Long term (current) use of aspirin; Z83.3 Family history of diabetes mellitus; W20.8XXA Other cause of strike by thrown, projected or falling object, initial encounter; Y99.8 Other external cause status

== ENCOUNTER → 2017-03-16 | Outpatient (CLI) | payer OTHER ==
[2017-03-16 13:42] LABS: BLOOD UREA NITROGEN 31 mg/dl (7-18); BUN/CREATININE RATIO 30.7 (10-20); CALCIUM 9.1 mg/dl (8.5-10.1); CARBON DIOXIDE 28 mmol/L (21-32); CHLORIDE 104 mmol/L (98-107); CREATININE 1.01 mg/dl (0.60-1.40); GLUCOSE 146 mg/dl (70-99); POTASSIUM 4.3 mmol/L (3.5-5.1); SODIUM 136 mmol/L (136-145)
[2017-03-16 14:14] LABS: CHOLESTEROL/HDL RATIO 4.2
[2017-03-16 14:31] LABS: ESTIMATED AVERAGE GLUCOSE 160 mg/dl; HA1C FLAG Normal (Normal)
== END | disposition home or self-care (01) ==
LOC: C.LABPVFM 07:29
PROVIDERS: ATTEND Nurse Practitioner Adult Health
DX: E11.49 Type 2 diabetes mellitus with other diabetic neurological complication (principal); R80.9 Proteinuria, unspecified; F43.20 Adjustment disorder, unspecified; N18.9 Chronic kidney disease, unspecified; I12.9 Hypertensive chronic kidney disease with stage 1 through stage 4 chronic kidney disease, or unspecified chronic kidney disease